=== PATIENT | female | born 1965 | race Caucasian/White ===

== ENCOUNTER → 2019-10-29 | Outpatient (CLI) | payer OTHER | END | disposition home or self-care (01) | LOC: LABWHC1 12:57 | PROVIDERS: ATTEND Family Medicine | DX: J06.9 Acute upper respiratory infection, unspecified (principal) | CPT/HCPCS: U0003; C9803 ==

== ENCOUNTER → 2021-06-29 | Outpatient (CLI) | payer OTHER ==
--- NOTE | 2021-06-29 10:56 | US ---
EXAMINATION TYPE: US thyroid st tissue head/neck DATE OF EXAM: 06/29/2021 COMPARISON: Prior thyroid ultrasound February 23, 2016 CLINICAL HISTORY: R59.9. Radioactive iodine TX to thyroid in 2010 GLAND SIZE: Right Lobe: 21.8 x 0.8 x 0.6 cm Overall Parenchyma: heterogenous Left Lobe: 2.2 x 0.9 x 0.9cm Overall Parenchyma: heterogeneous Isthmus Thickness: 0.1 cm NODULES RIGHT: # of nodules measured on right: 0 LEFT: # of nodules measured on left: 1 1. 1.0 X 0.7 x 0.7 cm, mid, solid or almost completely solid, hypoechoic nodule, which is wider terri n tall, with smooth margins, with echogenic foci. Prior size: 1.4 x 0.8 x 0.7 cm ISTHMUS: # of nodules measured in the isthmus: 0 Bilateral neck scanned, no evidence of lymphadenopathy. Heterogeneous small size thyroid with stable small left sided hypoechoic solid nodule. Towards end of study scanning of supraclavicular region shows patent vessels without concerning mass or fluid colle ction. IMPRESSION: As above. No new suspicious or enlarging nodules. No suspicious mass or fluid collection left supraclavicular region.
== END | disposition home or self-care (01) ==
LOC: RADUSWWP 08:54
PROVIDERS: ATTEND Family Medicine
DX: E04.1 Nontoxic single thyroid nodule (principal)
CPT/HCPCS: 76536

== ENCOUNTER → 2021-08-06 | Outpatient (CLI) | payer OTHER ==
--- NOTE | 2021-08-09 11:59 | CT ---
EXAMINATION TYPE: CT neck chest w con DATE OF EXAM: 08/06/2021 COMPARISON: 04/11/2010 HISTORY: h/o lump/swelling,pain in left axilla and lower left neck x6 months CT DLP: 1627.5 mGycm, Automated exposure control for dose reduction was used. CONTRAST: Performed injected with 100 mL of Isovue 300. TECHNIQUE: Axial images were obtained at 5 mm thick sections. Reconstructed images are reviewed on [employer] computer in the coronal plane. FINDINGS: Thyroid is not identified. Correlate for prior thyroidectomy. No suspicious lung nodules or focal infiltrates are present. No suspicious axillary adenopathy is evident. There are scattered small lymph nodes present. No supra clavicular adenopathy is identified. No suspicious subcutaneous or breast abnormality identified. No enlarged mediastinal or hilar adenopathy is evident. The ascending aorta diameter at the level o f the main pulmonary artery is 3.7 cm. The main pulmonary artery diameter at the bifurcation is 2.7 cm. Coronary artery calcification is noted. Limited CT sections are obtained through the upper abdomen. There is moderate fatty infiltration to l iver. No discrete mass is evident. Gallbladder surgically absent. Upper abdomen within the field-of-v iew is otherwise unremarkable. IMPRESSIONS: 1. No acute abnormality CT chest. 2. Moderate fatty infiltration of liver. EXAMINATION TYPE: CT neck chest w con DATE OF EXAM: 08/06/2021 COMPARISON: 04/11/2010 HISTORY: h/o lump/swelling,pain in left axilla and lower left neck x6 months CT DLP: 1627.5 mGycm CONTRAST: Patient injected with 100 mL of Isovue 300. TECHNIQUE: Axial images at 3 mm thick sections. Reconstructed images in the coronal plane and sagitt al plane are reviewed. FINDINGS: Limited CT sections are obtained the lung apices. The lung apices appear clear. CT neck: The torus tubarius are normal. Possible Rosenmuller are not well identified. No underlying m asses are identified. Finding is similar to 2010. Crew Leader/Control Room Operator spaces are normal. Paranasal sinuses an d mastoid air cells are clear. Parotid glands appear normal and symmetrical. Submandibular glands, are normal. Parapharyngeal spac es are normal. A 1.1 cm left jugulodigastric lymph node is present slightly enlarged. This lymph nod e was present previously but is slightly increased in size over the interval. There are scattered sma ll lymph nodes present bilaterally. A few small lymph nodes are posterior to the right submandibular gland in the jugulodigastric region The hypopharynx appears within normal limits. Vocal cord level appear symmetrical. Thyroid may be surgically absent. Clinical correlation recommended. Osseous structures are normal. IMPRESSIONS: 1. 1.1 cm left jugulodigastric lymph node is enlarged by measurement criteria. This is slightly great er in size from comparison. 2. No suspicious axillary masses or lymphadenopathy. Normal scattered small lymph nodes are present b ilaterally.
== END | disposition home or self-care (01) ==
LOC: RADCTMAIN 17:18
PROVIDERS: ATTEND Family Medicine
DX: K76.0 Fatty (change of) liver, not elsewhere classified (principal); R59.0 Localized enlarged lymph nodes
CPT/HCPCS: 70491; 71260; Q9967

== ENCOUNTER → 2022-01-28 | Outpatient (CLI) | payer OTHER | END | disposition home or self-care (01) | LOC: LABWHC1 08:29 | PROVIDERS: ATTEND Internal Medicine Endocrinology, Diabetes & Metabolism | DX: E03.8 Other specified hypothyroidism (principal); Z86.32 Personal history of gestational diabetes | CPT/HCPCS: 36415; 83036; 84443 ==

== ENCOUNTER → 2022-01-28 | Outpatient (CLI) | payer OTHER ==
--- NOTE | 2022-01-31 08:05 | MM ---
Reason for Exam: Screening (asymptomatic). Last screening mammogram was performed 12 month(s) ago. Patient History: Menarche at age 13. First Full-Term at age 26. Ultrasound-Guided Cyst Aspiration on the Left side. Paternal cousin had breast cancer at or over age 50. Risk Values: Jimena 5 year model risk: 1.3%. NCI Lifetime model risk: 8.0%. Prior Study Comparison: 02/04/2011 Bilateral Screening Mammogram, [facility]. 02/20/2012 Bilateral Screening Mammogram, [facility]. 03/05/2013 Bilateral Diagnostic Mammogram, [facility]. 02/20/2020 Bilateral MG screening mammo w CAD - 2, [facility]. 01/27/2021 Bilateral MG diagnostic mammo w CAD [facility] - 2, [facility]. Tissue Density: The breast tissue is almost entirely fat. Findings: Analyzed By CAD. There is no suspicious group of microcalcifications or new suspicious mass in either breast. Overall Assessment: Negative, BI-RAD 1 Management: Screening Mammogram of both breasts in 1 year. A clinical breast exam by your physician is recommended on an annual basis and results should be correlated with mammographic findings. [facility] will attempt to contact patient to return for supplemental views and ultrasound if indicated. Electronically signed and approved by: Jamal Covington DO
== END | disposition home or self-care (01) ==
LOC: RADMAMWWP 08:01
PROVIDERS: ATTEND Family Medicine
DX: Z12.31 Encounter for screening mammogram for malignant neoplasm of breast (principal); Z80.3 Family history of malignant neoplasm of breast
CPT/HCPCS: 77063; 77067

== ENCOUNTER → 2022-09-07 | Outpatient (CLI) | payer OTHER ==
[2022-09-07 14:44] LABS: HCT 42.7 % (37.2-46.3); HGB 13.5 g/dL (12.0-15.0); MCH 27.9 pg (27.0-32.0); MCHC 31.6 g/dL (32.0-37.0); MCV 88.2 fL (80.0-97.0); Mean Platelet Volume 10.2 fL (9.5-12.2); NRBC Per 100 WBC 0 /100 WBCS (0.0-0.0); Platelet Count 326 X 10*3/uL (140-440); RBC 4.84 X 10*6/uL (4.10-5.20); RDW 14.4 % (11.5-14.5); WBC 7.13 X 10*3/uL (4.50-10.00)
[2022-09-07 15:33] LABS: ALT 34 U/L (8-44); AST 21 U/L (13-35); African American GFR (CKD) 109.9 (60.0-200.0); Albumin 4.3 g/dL (3.8-4.9); Albumin/Globulin Ratio 1.69 (1.60-3.17); Alkaline Phosphatase 74 U/L (41-126); Blood Urea Nitrogen 16.4 mg/dL (9.0-27.0); Calcium 9.9 mg/dL (8.7-10.3); Chloride 99 mmol/L (96-109); Chol/HDL Ratio 4.37 Ratio; Globulin 2.5 g/dL (1.6-3.3); Glucose 105 mg/dL (70-110); LDL Cholesterol,Calculated 99.2 mg/dL (0.0-131.0); Non-African American GFR(CKD) 94.9 (60.0-200.0); Potassium 3.8 mmol/L (3.5-5.5); Sodium 143 mmol/L (135-145); Total Protein 6.8 g/dL (6.2-8.2)
== END | disposition home or self-care (01) ==
LOC: LABWHC1 08:04
PROVIDERS: ATTEND Internal Medicine Endocrinology, Diabetes & Metabolism
DX: E66.9 Obesity, unspecified (principal); E03.8 Other specified hypothyroidism; Z86.32 Personal history of gestational diabetes
CPT/HCPCS: 36415; 80053; 80061; 82306; 82626; 83036; 84443; 84481; 85027; 86140

== ENCOUNTER 2022-11-20 00:28 | Emergency (ER) | payer OTHER ==
[2022-11-20] MEDS ORDERED: SILVER NITRATE APPLICATOR 1 EACH STICK..EA. TOPICAL STA (00:52)
--- NOTE | 2022-11-20 01:23 | ED ---
GI Bleed HPI - General Chief complaint: GI Bleed Stated complaint: Rectal Bleeding Time Seen by Provider: 11/20/22 00:44 Source: patient Mode of arrival: ambulatory Limitations: no limitations - History of Present Illness Initial comments: This patient is a 57-year-old woman who presents to have evaluation for which she suspects is hemorrhoidal bleeding. The patient states she had been at a concert and had been sitting for a couple of hours. When she stood up she noted that there was blood saturating her pants where she had been sitting. She had no pain. She had not defecated. There was no urge to defecate. Patient states she has previously had hemorrhoids. The patient denies symptoms of anemia including no lightheadedness, palpitations, dyspnea, diaphoresis, syncope. MD complaint: other Onset/Timin -: hour(s) Severity scale (1-10): 0 Quality: painless Consistency: now resolved Improves with: none Worsens with: none Context: hemorrhoids Associated Symptoms: denies other symptoms - Related Data Home Medications Medication Instructions Recorded Confirmed ALPRAZolam 1 mg PO TID PRN 07/24/14 08/24/14 Levothyroxine Sodium [Synthroid] 137 mcg PO DAILY 07/24/14 08/24/14 atenoloL [Atenolol] 25 mg PO DAILY 07/24/14 08/24/14 Previous Rx's Medication Instructions Recorded Acyclovir [Zovirax] 800 mg PO 5XD 7 Days tab 08/24/14 Allergies Allergy/AdvReac Type Severity Reaction Status Date / Time NSAIDS (Non-Steroidal AdvReac Abdominal Verified 11/20/22 00:42 Anti-Inflamma Pain Review of Systems ROS Statement: Those systems with pertinent positive or pertinent negative responses have been documented in the HPI. ROS Other: All systems not noted in ROS Statement are negative. Constitutional: Denies: fever, chills, weakness Respiratory: Denies: cough, dyspnea Cardiovascular: Denies: chest pain, dyspnea on exertion, syncope Gastrointestinal: Denies: abdominal pain, vomiting, diarrhea, constipation, melena Genitourinary: Denies: dysuria, frequency, hematuria Musculoskeletal: Denies: back pain Skin: Denies: rash Neurological: Denies: weakness Hematological/Lymphatic: Denies: easy bleeding Past Medical History Past Medical History: Hypertension, Thyroid Disorder History of Any Multi-Drug Resistant Organisms: None Reported Past Surgical History: Section, Cholecystectomy, Orthopedic Surgery Additional Past Surgical History / Comment(s): uterine ablation. radioactive tx on thyroid. right wrist carpel tunnel repair Additional Past Anesthesia/Blood Transfusion Reaction / Comment(s): pt states she had a drop in blood pressure during surgery for her uterine ablation, and has frequent vaso/vagal response Past Psychological History: Anxiety, Depression, PTSD Smoking Status: Current every day smoker Past Alcohol Use History: Occasional Past Drug Use History: None Reported General Exam Limitations: no limitations General appearance: alert, in no apparent distress Eye exam: Present: normal appearance Respiratory exam: Present: normal lung sounds bilaterally. Absent: respiratory distress, wheezes, rales, rhonchi, stridor Cardiovascular Exam: Present: regular rate, normal rhythm, normal heart sounds. Absent: systolic murmur, diastolic murmur, rubs, gallop GI/Abdominal exam: Present: soft. Absent: distended, tenderness, guarding, rebound, rigid, mass Rectal exam: Present: normal rectal tone, hemorrhoids. Absent: mass, tenderness Extremities exam: Present: normal inspection, normal capillary refill. Absent: pedal edema Skin exam: Present: warm, dry, intact, normal color. Absent: rash Course Vital Signs 11/20/22 11/20/22 00:39 01:31 Temperature 99 F 98.9 F Pulse Rate 114 H 87 Respiratory 20 18 Rate Blood Pressure 144/99 113/76 O2 Sat by Pulse 98 95 Oximetry Medical Decision Making - Medical Decision Making This patient is 57-year-old woman who had painless bleeding at a concert tonight. On the inspection, there is what appears to be area of bleeding from hemorrhoid. No thrombosis. I did apply silver nitrate cautery. Discussed appropriate further care and follow-up as well as return parameters. Was pt. sent in by a medical professional or institution (, PA, DESIGN STUDIO CONSULTANT, urgent care, hospital, or [place] health care facility...) When possible be specific @ -[No] Did you speak to anyone other than the patient for history (EMS, parent, family, police, friend...)? What history was obtained from this source @ -[No] Did you review nursing and triage notes (agree or disagree)? Why? @ -[I reviewed and agree with nursing and triage notes] Were old charts reviewed (outside hosp., previous admission, EMS record, old EKG, old radiological studies, urgent care reports/EKG's, [place] health care facility records)? Report findings @ -[No old charts were reviewed] Differential Diagnosis (chest pain, altered mental status, abdominal pain women, abdominal pain men, vaginal bleeding, weakness, fever, dyspnea, syncope, headache, dizziness, GI bleed, back pain, seizure, CVA, palpatations, mental health, musculoskeletal)? @ -[Differential diagnosis for the patient's presentation includes: Bleeding hemorrhoid, anal fissure, abscess, hematuria, vaginal bleeding, amongst other conditions EKG interpreted by me (3pts min.). @ -[ X-rays interpreted by me (1pt min.). @ -[None done] CT interpreted by me (1pt min.). @ -[None done] U/S interpreted by me (1pt. min.). @ -[None done] What testing was considered but not performed or refused? (CT, X-rays, U/S, labs)? Why? @ -[None] What meds were considered but not given or refused? Why? @ -[None] Did you discuss the management of the patient with other professionals (professionals i.e. , PA, DESIGN STUDIO CONSULTANT, lab, RT, psych nurse, long term care social worker, zoology teacher, teacher, parole hearing officer, nurse outreach case manager)? Give summary @ -[No] Was smoking cessation discussed for >3mins.? @ -[No] Was critical care preformed (if so, how long)? @ -[No] Were there social determinants of health that impacted care today? How? (Homelessness, low income, unemployed, alcoholism, drug addiction, transport ation, low edu. Level, literacy, decrease access to med. care, fpc, rehab)? @ -[No] Was there de-escalation of care discussed even if they declined (Discuss DNR or withdrawal of care, Hospice)? DNR status @ -[No] What co-morbidities impacted this encounter? (DM, HTN, Smoking, COPD, CAD, Cancer, CVA, ARF, Chemo, Hep., AIDS, mental health diagnosis, sleep apnea, morbid obesity)? @ -[None] Was patient admitted / discharged? Hospital course, mention meds given and route, prescriptions, significant lab abnormalities, going to OR and other pertinent info. @ -[See above, the patient had the small area of bleeding cauterized. There was no recurrence in the department. Patient will be admitted to follow-up for reevaluation, return when necessary Undiagnosed new problem with uncertain prognosis? @ -[No] Drug Therapy requiring intensive monitoring for toxicity (Heparin, Nitro, Insulin, Cardizem)? @ -[No] Were any procedures done? @ -[No] Diagnosis/symptom? @ -[Acute hemorrhoidal bleeding Acute, or Chronic, or Acute on Chronic? @ -[default] Uncomplicated (without systemic symptoms) or Complicated (systemic symptoms)? @ -[Uncomplicated Side effects of treatment? @ -[No] Exacerbation, Progression, or Severe Exacerbation? @ -[No] Poses a threat to life or bodily function? How? (Chest pain, [place], [place], pneumonia, PE, COPD, DKA, ARF, appy, cholecystitis, CVA, Diverticulitis, Homicidal, Suicidal, threat to staff... and all critical care pts) @ -[No] Disposition Clinical Impression: External hemorrhoid, bleeding Disposition: HOME SELF-CARE Condition: Good Instructions (If sedation given, give patient instructions): Hemorrhoids (ED) Is patient prescribed a controlled substance at d/c from ED?: No Referrals: Irving Howard III, MD [Primary Care Provider] - 1-2 days
[2022-11-20 01:34] VITALS: BP 113/76; PULSE 87; RESP 18; TEMP 98.9
== END 2022-11-20 01:31 | disposition home or self-care (01) ==
LOC: EC 00:28
DX: K64.4 Residual hemorrhoidal skin tags (principal); I10 Essential (primary) hypertension; E07.9 Disorder of thyroid, unspecified; F32.A Depression, unspecified; F41.9 Anxiety disorder, unspecified; F17.200 Nicotine dependence, unspecified, uncomplicated; Z79.890 Hormone replacement therapy; Z79.899 Other long term (current) drug therapy; Z88.6 Allergy status to analgesic agent; Z90.49 Acquired absence of other specified parts of digestive tract
CPT/HCPCS: 99284

== ENCOUNTER → 2023-02-23 | Outpatient (CLI) | payer OTHER ==
--- NOTE | 2023-02-24 09:43 | MM ---
Reason for Exam: Screening (asymptomatic). Last mammogram was performed 1 year(s) and 1 month(s) ago. Patient History: Menarche at age 13. First Full-Term at age 26. Hysterectomy at age 43. Postmenopausal. Patient has history of breast feeding. Ultrasound-Guided Cyst Aspiration on the Left side. Paternal cousin had breast cancer at or over age 50. Risk Values: Jimena 5 year model risk: 1.4%. NCI Lifetime model risk: 7.8%. Prior Study Comparison: 02/20/2012 Bilateral Screening Mammogram, [facility]. 03/05/2013 Bilateral Diagnostic Mammogram, [facility]. 02/20/2020 Bilateral MG screening mammo w CAD - 2, [facility]. 01/27/2021 Bilateral MG diagnostic mammo w CAD [facility] - 2, [facility]. 01/28/2022 Bilateral MG 3D screening mammo w/cad, [facility]. Tissue Density: The breast tissue is almost entirely fat. Findings: Analyzed By CAD. There is no suspicious group of microcalcifications or new suspicious mass. Overall Assessment: Negative, BI-RAD 1 Management: Screening Mammogram of both breasts in [address] [facility] will attempt to contact patient to return for supplemental views and ultrasound if indicated. Patient should continue monthly self-breast exams. A clinical breast exam by your physician is recommended on an annual basis. This exam should not preclude additional follow-up of suspicious palpable abnormalities. Note on Jimena scores and lifetime risk: 1. A Jimena score greater than 3% is considered moderate risk. If this is the case, consider specialist referral to assess eligibility for a risk reducing agent. 2. If overall lifetime risk for the development of breast cancer is 20% or higher, the patient may qualify for future screening with alternating mammogram and breast MRI. Electronically signed and approved by: Jamal Covington DO
== END | disposition home or self-care (01) ==
LOC: RADMAMWWP 10:53
PROVIDERS: ATTEND Family Medicine
DX: Z12.31 Encounter for screening mammogram for malignant neoplasm of breast (principal); Z78.0 Asymptomatic menopausal state; Z80.3 Family history of malignant neoplasm of breast
CPT/HCPCS: 77063; 77067

== ENCOUNTER → 2023-05-10 | Outpatient (CLI) | payer OTHER | END | disposition home or self-care (01) | LOC: LABWHC1 14:25 | PROVIDERS: ATTEND Internal Medicine Endocrinology, Diabetes & Metabolism | DX: E03.8 Other specified hypothyroidism (principal) | CPT/HCPCS: 36415; 84443 ==

== ENCOUNTER → 2023-05-23 | Outpatient (CLI) | payer OTHER ==
[2023-05-24 04:10] LABS: Apolipoprotein A1 148 mg/dL (125 - 215)
[2023-05-25 12:06] LABS: Lipoprotein A 21 mg/dL (0-30)
== END | disposition home or self-care (01) ==
LOC: LABWHC1 13:05
PROVIDERS: ATTEND Internal Medicine
DX: E78.5 Hyperlipidemia, unspecified (principal); Z80.8 Family history of malignant neoplasm of other organs or systems
CPT/HCPCS: 36415; 82172; 83695

== ENCOUNTER → 2024-03-21 | Outpatient (CLI) | payer OTHER ==
--- NOTE | 2024-03-24 04:48 | MM ---
Reason for Exam: Screening (asymptomatic). Last mammogram was performed 1 year(s) and 1 month(s) ago. Patient History: Menarche at age 13. First Full-Term at age 26. Hysterectomy at age 43. Postmenopausal. Patient has history of breast feeding. Ultrasound-Guided Cyst Aspiration on the Left side. Paternal cousin had breast cancer at or over age 50. Risk Values: Jimena 5 year model risk: 1.4%. NCI Lifetime model risk: 7.6%. Prior Study Comparison: 01/27/2021 Bilateral MG diagnostic mammo w CAD [facility] - 2, [facility]. 01/28/2022 Bilateral MG 3D screening mammo w/cad, [facility]. 02/23/2023 Bilateral MG 3D screening mammo w/cad, [facility]. Tissue Density: There are scattered areas of fibroglandular density. Findings: Analyzed By CAD. The pattern is symmetrical. No significant interval change. Some chronic nodularity within the left breast. No suspicious groups of microcalcifications, spiculated or lobular masses, architectural distortion or other secondary signs of malignancy are mammographically apparent. Overall Assessment: Benign, BI-RAD 2 Management: Screening Mammogram of both breasts in 1 year. A negative mammogram report should not preclude additional follow up of suspicious palpable abnormalities. Patient should continue monthly self breast exam. A clinical breast exam by your physician is recommended on an annual basis and results should be correlated with mammographic findings. Note on Jimena scores and lifetime risk: 1. A Jimena score greater than 3% is considered moderate risk. If this is the case, consider specialist referral to assess eligibility for a risk reducing agent. 2. If overall lifetime risk for the development of breast cancer is 20% or higher, the patient may qualify for future screening with alternating mammogram and breast MRI. [facility], , 03/24/2024 4:44 AM. Electronically signed and approved by: Shravan Kuhn D.O. Radiologis
== END | disposition home or self-care (01) ==
LOC: RADMAMWWP 12:59
PROVIDERS: ATTEND Family Medicine
DX: Z12.31 Encounter for screening mammogram for malignant neoplasm of breast (principal); Z78.0 Asymptomatic menopausal state; Z80.3 Family history of malignant neoplasm of breast; R92.323 Mammographic fibroglandular density, bilateral breasts
CPT/HCPCS: 77063; 77067

== ENCOUNTER 2024-04-30 20:11 | Emergency (ER) | payer OTHER ==
[2024-04-30 21:02] LABS: Influenza A Detected (Not Detectd); Influenza B Not Detected (Not Detectd); RSV Not Detected (Not Detectd)
--- NOTE | 2024-04-30 21:02 | ED ---
General Adult HPI - General Chief complaint: Upper Respiratory Infection Stated complaint: Fever,Cough Time Seen by Provider: 04/30/24 20:19 Source: patient Mode of arrival: ambulatory Limitations: no limitations - History of Present Illness Initial comments: 58-year-old female presenting with chief complaint of cough. Patient states symptoms have been ongoing for few days. She admits to shortness of breath and chest soreness with coughing. She also has congestion and now with fever. She was seen urgent care a few days ago told to be reevaluated if she developed a fever. Patient is an every day smoker. No lower extremity swelling. No dizziness or lightheadedness. No weakness. - Related Data Home Medications Medication Instructions Recorded Confirmed ALPRAZolam 1 mg PO TID PRN 07/24/14 01/02/23 atenoloL [Atenolol] 25 mg PO DAILY 07/24/14 01/02/23 Cetirizine HCl 10 mg PO DAILY 01/02/23 01/02/23 Cyclobenzaprine [Flexeril] 5 mg PO TID PRN 01/02/23 01/02/23 Desvenlafaxine Succinate [Pristiq 25 mg PO Q24HR 01/02/23 01/02/23 ER] Ergocalciferol [Vitamin D2 (1250 1,250 mcg PO WEEKLY 01/02/23 01/02/23 Mcg = 69717 Iu)] Levothyroxine Sodium [Unithroid] 150 mcg PO DAILY 01/02/23 01/02/23 Semaglutide [Wegovy] 2.4 mg SQ WEEKLY 01/02/23 01/02/23 hydroCHLOROthiazide [Hydrodiuril] 25 mg PO DAILY 01/02/23 01/02/23 Previous Rx's Medication Instructions Recorded Oseltamivir [Tamiflu] 75 mg PO Q12HR 5 Days #10 cap 04/30/24 methylPREDNISolone Dose Pack 4 mg PO DIRECTED #1 packet 04/30/24 [Medrol Dose Pack] Allergies Allergy/AdvReac Type Severity Reaction Status Date / Time NSAIDS (Non-Steroidal AdvReac Abdominal Verified 04/30/24 20:15 Anti-Inflamma Pain Review of Systems ROS Statement: Those systems with pertinent positive or pertinent negative responses have been documented in the HPI. ROS Other: All systems not noted in ROS Statement are negative. Past Medical History Past Medical History: Diabetes Mellitus, Hypertension, Sleep Apnea/CPAP/BIPAP, Thyroid Disorder Additional Past Medical History / Comment(s): pinched sciatic nerve, cpap,radioactive on thyroid, hx of tachycardia prior to radiation to thyroid History of Any Multi-Drug Resistant Organisms: None Reported Past Surgical History: Ablation, Section, Cholecystectomy, Orthopedic Surgery Additional Past Surgical History / Comment(s): uterine ablation. radioactive tx on thyroid. right wrist carpel tunnel repair colonoscopy Additional Past Anesthesia/Blood Transfusion Reaction / Comment(s): pt states she had a drop in blood pressure during surgery for her uterine ablation, and has frequent vaso/vagal response. heart racing Past Psychological History: Anxiety, Depression, PTSD Smoking Status: Current every day smoker General Exam Limitations: no limitations General appearance: alert, in no apparent distress Head exam: Present: atraumatic, normocephalic, normal inspection Eye exam: Present: normal appearance, EOMI Neck exam: Present: normal inspection. Absent: meningismus Respiratory exam: Present: normal lung sounds bilaterally. Absent: respiratory distress, wheezes, rales, rhonchi, stridor Cardiovascular Exam: Present: regular rate, normal rhythm, normal heart sounds. Absent: systolic murmur, diastolic murmur, rubs, gallop, clicks Neurological exam: Present: alert, oriented X3 Psychiatric exam: Present: normal affect, normal mood Skin exam: Present: warm, dry Course Vital Signs 04/30/24 04/30/24 20:12 21:47 Temperature 101.0 F H 100.9 F H Pulse Rate 90 79 Respiratory 22 20 Rate Blood Pressure 159/90 142/87 O2 Sat by Pulse 96 98 Oximetry Medical Decision Making - Medical Decision Making Was pt. sent in by a medical professional or institution (, PA, PEDIATRIC CLINICAL NURSE SPECIALIST, urgent care, hospital, or alf...) When possible be specific @ -No Did you speak to anyone other than the patient for history (EMS, parent, family, police, friend...)? What history was obtained from this source @ -No Did you review nursing and triage notes (agree or disagree)? Why? @ -I reviewed and agree with nursing and triage notes Were old charts reviewed (outside hosp., previous admission, EMS record, old EKG, old radiological studies, urgent care reports/EKG's, alf records)? Report findings @ -No old charts were reviewed Differential Diagnosis (chest pain, altered mental status, abdominal pain women, abdominal pain men, vaginal bleeding, weakness, fever, dyspnea, syncope, headache, dizziness, GI bleed, back pain, seizure, CVA, palpatations, mental health, musculoskeletal)? @ -Differential includes influenza, RSV, COVID, pneumonia, bronchitis, not an all-inclusive list EKG interpreted by me (3pts min.). @ -As above X-rays interpreted by me (1pt min.). @ -Chest x-ray shows no acute process CT interpreted by me (1pt min.). @ -None done U/S interpreted by me (1pt. min.). @ -None done What testing was considered but not performed or refused? (CT, X-rays, U/S, labs)? Why? @ -None What meds were considered but not given or refused? Why? @ -None Did you discuss the management of the patient with other professionals (professionals i.e. , PA, PEDIATRIC CLINICAL NURSE SPECIALIST, lab, RT, psych nurse, sr. social media & mobile manager, service delivery supervisor, teacher, tactical intelligence officer, manager case)? Give summary @ -No Was smoking cessation discussed for >3mins.? @ -No Was critical care preformed (if so, how long)? @ -No Were there social determinants of health that impacted care today? How? (Homelessness, low income, unemployed, alcoholism, drug addiction, transportation, low edu. Level, literacy, decrease access to med. care, fpc, rehab)? @ -No Was there de-escalation of care discussed even if they declined (Discuss DNR or withdrawal of care, Hospice)? DNR status @ -No What co-morbidities impacted this encounter? (DM, HTN, Smoking, COPD, CAD, Cance r, CVA, ARF, Chemo, Hep., AIDS, mental health diagnosis, sleep apnea, morbid obesity)? @ -None Was patient admitted / discharged? Hospital course, mention meds given and route, prescriptions, significant lab abnormalities, going to OR and other pertinent info. @ -58-year-old female presenting chief complaint of cough, shortness of breath, chest soreness, congestion. History and physical examination are conducted. Patient is febrile, she took Tylenol just prior to arrival and is allergic to NSAIDs. Heart and lungs are clear to auscultation. Chest x-ray shows no acute process. Patient is positive for influenza A. Symptoms started about 48 hours ago, she will be started on Tamiflu. She has albuterol inhaler at home that she uses as needed, will be started Medrol Dosepak as well. Follow-up with PCP. Report back to ER with any new or worsening symptoms. Discussed return parameters and answered all questions. Patient conveyed verbal understanding and agreed to the plan. My attending is Dr. Varela Undiagnosed new problem with uncertain prognosis? @ -No Drug Therapy requiring intensive monitoring for toxicity (Heparin, Nitro, Insulin, Cardizem)? @ -No Were any procedures done? @ -No Diagnosis/symptom? @ -Influenza A Acute, or Chronic, or Acute on Chronic? @ -Acute Uncomplicated (without systemic symptoms) or Complicated (systemic symptoms)? @ -Uncomplicated Side effects of treatment? @ -No Exacerbation, Progression, or Severe Exacerbation? @ -No Poses a threat to life or bodily function? How? (Chest pain, [place], [place], pneumonia, PE, COPD, DKA, ARF, appy, cholecystitis, CVA, Diverticulitis, Homicidal, Suicidal, threat to staff... and all critical care pts) @ -Low likelihood - Lab Data Lab Results 04/30/24 Range/Units 20:18 Influenza Type A (PCR) Detected A (Not Detectd) Influenza Type B (PCR) Not Detected (Not Detectd) RSV (PCR) Not Detected (Not Detectd) SARS-CoV-2 (PCR) Not Detected (Not Detectd) Disposition Clinical Impression: Influenza Disposition: HOME SELF-CARE Condition: Good Instructions (If sedation given, give patient instructions): Influenza (ED) Additional Instructions: Follow-up with PCP. Report back to ER with any new or worsening symptoms. Take your medication as prescribed. Prescriptions: methylPREDNISolone Dose Pack [Medrol Dose Pack] 4 mg PO DIRECTED #1 packet Oseltamivir [Tamiflu] 75 mg PO Q12HR 5 Days #10 cap Is patient prescribed a controlled substance at d/c from ED?: No Referrals: Grupo eD Leon MD [Primary Care Provider] - 1-2 days Time of Disposition: 21:46
--- NOTE | 2024-04-30 21:23 | XR ---
EXAMINATION TYPE: XR chest 2V DATE OF EXAM: 04/30/2024 9:15 PM COMPARISON: Chest radiographs from 04/11/2010. CLINICAL INDICATION: Female, 58 years old with history of cough; H TECHNIQUE: XR chest 2V Frontal and lateral views of the chest. FINDINGS: Lungs/Pleura: There is no evidence of pleural effusion, focal consolidation, or pneumothorax. Pulmonary vascularity: Unremarkable. Heart/mediastinum: Cardiomediastinal silhouette is unremarkable. Musculoskeletal: No acute osseous pathology. IMPRESSION: No acute cardiopulmonary disease/process. [facility], , 04/30/2024 9:21 PM
[2024-04-30 21:48] VITALS: BP 142/87; PULSE 79; RESP 20; TEMP 100.9
== END 2024-04-30 21:54 | disposition home or self-care (01) ==
LOC: EC 20:11
DX: J10.1 Influenza due to other identified influenza virus with other respiratory manifestations (principal); F17.200 Nicotine dependence, unspecified, uncomplicated; Z88.6 Allergy status to analgesic agent
CPT/HCPCS: 71046; 87636; 99283